=== PATIENT | female | born 1980 | race Caucasian/White ===

== ENCOUNTER 2025-05-22 13:12 | Emergency (ER) | payer OTHER ==
[~2025-05-22] VITALS: Ht 167.6 cm; Wt 75.0 kg
[2025-05-22 13:24] VITALS: O2SAT 100
[2025-05-22 14:15] LABS: BASOPHILS % 1.0 % (0.0-2.0); EOSINOPHILS % 0.1 % (0.0-5.0); HEMATOCRIT. 48.4 % (36.0-48.0); HEMOGLOBIN. 16.2 g/dL (12.0-16.0); LYMPHOCYTES % 36.9 % (20.0-50.0); MEAN PLATELET VOLUME 10.6 fl (7.4-10.4); MONOCYTES % 9.7 % (2.0-8.0); NEUTROPHILS % 52.3 % (40.0-76.0); PLATELET 90 x1000/uL (130-400); RED BLOOD CELL COUNT 5.41 mill/uL (4.2-5.4); RED CELL DISTRIBUTION WIDTH 13.5 % (11.6-14.6)
[2025-05-22 14:28] LABS: CREATININE 1.1 mg/dL (0.6-1.0); UREA NITROGEN BLOOD 13 mg/dL (9-23)
[2025-05-22 14:30] LABS: ASPARTATE AMINOTRANSFERASE 24 IU/L (<34); BILIRUBIN DIRECT 0.2 mg/dL (<=3.0); BILIRUBIN TOTAL 0.5 mg/dL (0.1-1.0); PROTEIN TOTAL 7.9 g/dL (6.0-8.3)
[2025-05-22] MEDS: IBUPROFEN 600MG TABLET PO ONE (17:38)
[2025-05-22] MEDS: TRAMADOL 50MG TABLET PO ONE (17:39)
[2025-05-22 18:22] LABS: HCG SCREEN NEGATIVE
[2025-05-22 18:38] VITALS: TEMP 37.1
[2025-05-22 19:20] LABS: COLOR URINE YELLOW (YELLOW); GLUCOSE URINE NEGATIVE (NEGATIVE); KETONES URINE NEGATIVE (NEGATIVE); LEUKOCYTE ESTERASE URINE 1+ (NEGATIVE); NITRITE URINE NEGATIVE (NEGATIVE); OCCULT BLOOD URINE TRACE (NEGATIVE); PH URINE 5.5 (4.5-8.0); PROTEIN URINE NEGATIVE (NEGATIVE); SPECIFIC GRAVITY URINE 1.015 (1.005-1.030); UROBILINOGEN URINE 0.2 E.U./dL (0.2-1.0)
[2025-05-22 20:13] LABS: CLARITY URINE SL HAZY (CLEAR)
[2025-05-22 20:15] LABS: WBC URINE 0-2 /hpf (0-2)
[2025-05-22 20:16] LABS: SQUAMOUS EPITHELIAL CELL URINE 2+ /lpf (RARE/1+)
[2025-05-22 20:17] LABS: BACTERIA URINE 2+; RBC URINE 0-2 /hpf (0-2)
[2025-05-22] MEDS ORDERED: NITR100C MT (20:24)
[2025-05-22] MEDS ORDERED: TRAM50TA3 MT (20:26)
[2025-05-22] MEDS ORDERED: PHEN-910 MT (20:45)
[2025-05-22] MEDS ORDERED: CIPR250T4 MT (20:45)
[2025-05-22] MEDS ORDERED: CLOT21CR VG (20:45)
[2025-05-22 20:53] VITALS: BP 112/60; PULSE 67; RESP 18; O2SAT 100
== END 2025-05-22 20:54 | disposition home or self-care (01) ==
LOC: ER 13:33
DX: M54.50 Low back pain, unspecified (principal)
CPT/HCPCS: 36415; 80048; 80076; 81003; 81025; 84703; 85025; 99283